=== PATIENT | female | born 1955 | race Caucasian/White ===

== ENCOUNTER 2023-08-19 16:01 | Inpatient (IN) | payer MEDICARE, OTHER ==
[~2023-08-19] VITALS: Ht 167.6 cm; Wt 107.9 kg
[~2023-08-19 16:01] MED LIST: ALBU83IN INH; ATEN50TA2 PO; ATRO0.06 INH; ATROVENT0.02% INH; AVEL1TAB2 OR; BABY81CH OR; CEFT250T OR; CLON0.5T PO; DUONSOL IN; GLUC500T OR; HYDROCHLOROTHIAZIDE PO; IBUP400T OR; IBUP400T PO; INSULANT SC; KLON0.5T OR; MIRT1TAB21 PO; NICO21DI4 TD; NORT25CA2 PO; PAME50CA OR; PRED5EL OR; PRIN5TAB OR; PROT20TA11 PO; RANI300T OR; REME30TA OR; SPIRONOLACTONE PO; TENO50TA OR; TRAZ300T2 OR; TRAZ300T2 PO; VENTAER IN; ZANT300T OR; ZOCO40TA OR
[2023-08-19 16:46] LABS: BASO # 0.1 10^3/uL (0.0-0.2); BASO % 0.8 % (0.0-1.0); EOS # 0.1 10^3/uL (0.0-0.5); EOS % 0.8 % (0.0-3.0); HEMATOCRIT 48.6 % (36.0-47.0); HEMOGLOBIN 16.2 g/dl (12.0-15.5); LYMPH # 2.1 10^3/uL (1.5-5.0); LYMPH % 22.1 % (24.0-44.0); MEAN CORPUSCULAR HEMOGLOBIN 30.9 pg (27.0-33.0); MEAN CORPUSCULAR HGB CONC 33.3 g/dl (32.0-36.5); MEAN CORPUSCULAR VOLUME 92.7 fl (80.0-96.0); MONO # 0.9 10^3/uL (0.0-0.8); MONO % 9.3 % (2.0-8.0); NEUTROPHILS # 6.2 10^3/uL (1.5-8.5); NEUTROPHILS % 66.6 % (36.0-66.0); PLATELET COUNT, AUTOMATED 286 10^3/uL (150-450); RED BLOOD COUNT 5.24 10^6/uL (4.00-5.40); WHITE BLOOD COUNT 9.3 10^3/uL (4.0-10.0)
[2023-08-19 17:16] LABS: BLOOD UREA NITROGEN 18 MG/DL (9-23); CALCIUM LEVEL 8.8 MG/DL (8.3-10.6); CARBON DIOXIDE LEVEL 21 MMOL/L (20-31); CHLORIDE LEVEL 109 MMOL/L (98-107); CREATININE FOR GFR 0.68 MG/DL (0.55-1.30); GLOMERULAR FILTRATION RATE > 60.0 (>45); GLUCOSE, FASTING 104 MG/DL (74-106); POTASSIUM SERUM 4.4 MMOL/L (3.5-5.1); SODIUM LEVEL 140 MMOL/L (136-145)
[2023-08-19 17:35] LABS: ABG BASE EXCESS -1.9 (-2.0-2.0); ABG O2 SATURATION 88.1 % (95.0-99.0); ABG PARTIAL PRESSURE O2 52.9 mmHg (75.0-100.0); ABG STANDARD HCO3 22.6 MMOL/L. (22.0-26.0); ABG TOTAL CO2 25.4 MMOL/L (23.0-31.0); ABG pH (ARTERIAL) 7.345 UNITS (7.350-7.450)
[2023-08-19] MEDS: IPRATROPIUM 0.5MG/ALBUTEROL 2.5MG INH SOL UD 3ML (DUONEB) NEB SCH ×2 (17:41→20:07)
[2023-08-19] MEDS ORDERED: GLUCOSE 4GM CHEW TABLET PO PRN (18:20)
[2023-08-19] MEDS ORDERED: GLUCAGON INJ 1MG VIAL SC PRN (18:20)
[2023-08-19] MEDS ORDERED: DEXTROSE 50% 50ML SYRINGE IV PRN (18:20)
[2023-08-19 19:09] LABS: PROCALCITONIN 0.07 ng/ml
[2023-08-19] MEDS ORDERED: TRAZ-252 PO (19:51)
[2023-08-19] MEDS ORDERED: ALBU8.5H PO (19:51)
[2023-08-19] MEDS ORDERED: SERT25TA21 PO (19:51)
[2023-08-19] MEDS ORDERED: IBUP80TA PO (19:51)
[2023-08-19] MEDS ORDERED: ATOR1TAB21 PO (19:51)
[2023-08-19] MEDS ORDERED: SPIR1CAP INH (19:51)
[2023-08-19] MEDS ORDERED: METF500T13 PO (19:51)
[2023-08-19] MEDS ORDERED: PANT40TA29 PO (19:51)
[2023-08-19] MEDS ORDERED: HYDR12CA PO (19:51)
[2023-08-19] MEDS ORDERED: HOME MED LIST COMPLETE! XX SCH (19:55)
[2023-08-19] MEDS ORDERED: IPRATROPIUM 0.5MG/ALBUTEROL 2.5MG INH SOL UD 3ML (DUONEB) NEB SCH (20:00)
[2023-08-19] MEDS ORDERED: SYMBICORT 160/4.5MCG INHALER 6GM INH SCH (20:00)
[2023-08-19] MEDS: cefTRIAXone SOD 1 GM in D5W MINI-BAG PLUS 50 ML IV SCH (20:34)
[2023-08-19] MEDS: methylPREDNISolone 40MG 1ML VIAL IV SCH (20:34)
[2023-08-19] MEDS: INSULIN LISPRO (NovoLOG) PER UNIT SC SCH (21:00)
[2023-08-19 21:45] VITALS: BP 133/85; TEMP 99; O2SAT 85
[2023-08-19] MEDS: AZITHROMYCIN 250MG TABLET PO SCH (21:57)
[2023-08-19] MEDS: ALBUTEROL SULFATE 2.5MG/0.5ML INH NEB SOLN NEB SCH ×2 (22:06→23:50)
[2023-08-19] MEDS: SODIUM CHLORIDE HYPERTONIC 3% 4ML NEB SOL INH SCH ×2 (22:06→23:50)
[2023-08-19 22:15] VITALS: O2SAT 91
[2023-08-19 22:42] VITALS: O2SAT 90
[2023-08-19 22:43] VITALS: O2SAT 90
[2023-08-19 23:53] VITALS: O2SAT 93
[2023-08-20] VITALS (8 sets, daily range): BP systolic 105–143; BP diastolic 54–65; TEMP 98.2–98.8; O2SAT 88–93
[2023-08-20] MEDS: methylPREDNISolone 40MG 1ML VIAL IV SCH (03:54)
[2023-08-20] MEDS: SODIUM CHLORIDE HYPERTONIC 3% 4ML NEB SOL INH SCH ×5 (04:24→21:16)
[2023-08-20] MEDS: ALBUTEROL SULFATE 2.5MG/0.5ML INH NEB SOLN NEB SCH (04:24)
[2023-08-20 06:42] LABS: BASO % 0.2 % (0.0-1.0); HEMATOCRIT 46.2 % (36.0-47.0); HEMOGLOBIN 14.9 g/dl (12.0-15.5); LYMPH # 0.5 10^3/uL (1.5-5.0); LYMPH % 8.6 % (24.0-44.0); MEAN CORPUSCULAR HEMOGLOBIN 29.7 pg (27.0-33.0); MEAN CORPUSCULAR HGB CONC 32.3 g/dl (32.0-36.5); MEAN CORPUSCULAR VOLUME 92.2 fl (80.0-96.0); MONO # 0.1 10^3/uL (0.0-0.8); MONO % 0.9 % (2.0-8.0); NEUTROPHILS # 5.2 10^3/uL (1.5-8.5); PLATELET COUNT, AUTOMATED 254 10^3/uL (150-450); RED BLOOD COUNT 5.01 10^6/uL (4.00-5.40); WHITE BLOOD COUNT 5.8 10^3/uL (4.0-10.0)
[2023-08-20 07:00] LABS: BLOOD UREA NITROGEN 17 MG/DL (9-23); CALCIUM LEVEL 8.7 MG/DL (8.3-10.6); CARBON DIOXIDE LEVEL 23 MMOL/L (20-31); CHLORIDE LEVEL 105 MMOL/L (98-107); CREATININE FOR GFR 0.61 MG/DL (0.55-1.30); GLOMERULAR FILTRATION RATE > 60.0 (>45); GLUCOSE, FASTING 195 MG/DL (74-106); POTASSIUM SERUM 4.5 MMOL/L (3.5-5.1); SODIUM LEVEL 135 MMOL/L (136-145)
[2023-08-20] MEDS: BUDESONIDE 0.25 MG/2 ML INHALATION SUSPENSION INH SCH ×2 (07:21→21:16)
[2023-08-20] MEDS: FORMOTEROL FUMARATE 20 MCG/2 ML INHALATION SOLUTION (PERFOROMIST) INH SCH ×2 (07:22→21:16)
[2023-08-20] MEDS: IPRATROPIUM 0.5MG/ALBUTEROL 2.5MG INH SOL UD 3ML (DUONEB) NEB SCH ×4 (07:23→21:16)
[2023-08-20] MEDS ORDERED: TIOTROPIUM INHALER/CAPSULE (SPIRIVA) INH SCH (08:00)
[2023-08-20] MEDS: INSULIN LISPRO (NovoLOG) PER UNIT SC SCH ×4 (08:06→21:00)
[2023-08-20] MEDS: ENOXAPARIN 40MG/0.4ML SYRINGE (J1650 PER 10MG) SC SCH (08:07)
[2023-08-20] MEDS: methylPREDNISolone 125MG 2ML VIAL IV SCH ×3 (12:24→23:37)
[2023-08-20] MEDS ORDERED: SPIR1CAP INH (13:04)
[2023-08-20] MEDS ORDERED: SYMB16INH INH ×2 (13:04→13:06)
[2023-08-20] MEDS: ALBUTEROL SULFATE 2.5MG/0.5ML INH NEB SOLN NEB PRN (15:24)
[2023-08-20] MEDS: AZITHROMYCIN 250MG TABLET PO SCH (20:14)
[2023-08-20] MEDS: cefTRIAXone SOD 1 GM in D5W MINI-BAG PLUS 50 ML IV SCH (20:15)
[2023-08-21] VITALS (7 sets, daily range): BP systolic 134–141; BP diastolic 58–75; TEMP 96.6–98.1; O2SAT 90–99
[2023-08-21] MEDS: SODIUM CHLORIDE HYPERTONIC 3% 4ML NEB SOL INH SCH ×7 (00:26→23:53)
[2023-08-21] MEDS: ALBUTEROL SULFATE 2.5MG/0.5ML INH NEB SOLN NEB PRN (00:26)
[2023-08-21] MEDS: IPRATROPIUM 0.5MG/ALBUTEROL 2.5MG INH SOL UD 3ML (DUONEB) NEB SCH ×7 (00:27→23:53)
[2023-08-21] MEDS: methylPREDNISolone 125MG 2ML VIAL IV SCH ×3 (05:44→21:36)
[2023-08-21 05:48] LABS: BASO % 0.1 % (0.0-1.0); HEMOGLOBIN 14.8 g/dl (12.0-15.5); LYMPH # 0.8 10^3/uL (1.5-5.0); LYMPH % 9.3 % (24.0-44.0); MEAN CORPUSCULAR HEMOGLOBIN 30.4 pg (27.0-33.0); MEAN CORPUSCULAR HGB CONC 32.9 g/dl (32.0-36.5); MEAN CORPUSCULAR VOLUME 92.4 fl (80.0-96.0); MONO # 0.2 10^3/uL (0.0-0.8); MONO % 2.3 % (2.0-8.0); NEUTROPHILS # 7.6 10^3/uL (1.5-8.5); NEUTROPHILS % 87.6 % (36.0-66.0); PLATELET COUNT, AUTOMATED 301 10^3/uL (150-450); RED BLOOD COUNT 4.87 10^6/uL (4.00-5.40); WHITE BLOOD COUNT 8.7 10^3/uL (4.0-10.0)
[2023-08-21 06:30] LABS: BLOOD UREA NITROGEN 26 MG/DL (9-23); CALCIUM LEVEL 9.1 MG/DL (8.3-10.6); CARBON DIOXIDE LEVEL 22 MMOL/L (20-31); CHLORIDE LEVEL 106 MMOL/L (98-107); CREATININE FOR GFR 0.64 MG/DL (0.55-1.30); GLOMERULAR FILTRATION RATE > 60.0 (>45); GLUCOSE, FASTING 265 MG/DL (74-106); POTASSIUM SERUM 4.2 MMOL/L (3.5-5.1); SODIUM LEVEL 135 MMOL/L (136-145)
[2023-08-21] MEDS: BUDESONIDE 0.25 MG/2 ML INHALATION SUSPENSION INH SCH (07:18)
[2023-08-21] MEDS: FORMOTEROL FUMARATE 20 MCG/2 ML INHALATION SOLUTION (PERFOROMIST) INH SCH (07:19)
[2023-08-21] MEDS: SENOKOT S TAB PO SCH ×2 (07:56→21:00)
[2023-08-21] MEDS: PANTOPRAZOLE 40MG TAB (PROTONIX) PO SCH (07:56)
[2023-08-21] MEDS: INSULIN LISPRO (NovoLOG) PER UNIT SC SCH ×4 (07:57→21:00)
[2023-08-21] MEDS: ENOXAPARIN 40MG/0.4ML SYRINGE (J1650 PER 10MG) SC SCH (07:58)
[2023-08-21] MEDS ORDERED: FUROSEMIDE 40MG/4ML VIAL IV ONE (09:00)
[2023-08-21] MEDS: LEVEMIR (INSULIN DETEMIR) 1 UNITS/0.01ML SC SCH (12:44)
[2023-08-21] MEDS: IBUPROFEN 600MG TAB PO PRN (15:36)
[2023-08-21] MEDS: ACETAMINOPHEN 500 MG TAB PO PRN (15:37)
[2023-08-21] MEDS: SYMBICORT 160/4.5MCG INHALER 6GM INH SCH (19:27)
[2023-08-21] MEDS: cefTRIAXone SOD 1 GM in D5W MINI-BAG PLUS 50 ML IV SCH (21:35)
[2023-08-21] MEDS: AZITHROMYCIN 250MG TABLET PO SCH (21:36)
[2023-08-22] MEDS: IBUPROFEN 600MG TAB PO PRN ×2 (00:13→21:38)
[2023-08-22] MEDS: ACETAMINOPHEN 500 MG TAB PO PRN ×3 (00:14→21:37)
[2023-08-22] MEDS: IPRATROPIUM 0.5MG/ALBUTEROL 2.5MG INH SOL UD 3ML (DUONEB) NEB SCH ×6 (03:30→23:47)
[2023-08-22] MEDS: SODIUM CHLORIDE HYPERTONIC 3% 4ML NEB SOL INH SCH ×6 (03:30→23:47)
[2023-08-22] MEDS: methylPREDNISolone 125MG 2ML VIAL IV SCH ×3 (05:23→21:36)
[2023-08-22] MEDS: PANTOPRAZOLE 40MG TAB (PROTONIX) PO SCH (05:54)
[2023-08-22 06:06] LABS: BASO % 0.2 % (0.0-1.0); HEMATOCRIT 45.7 % (36.0-47.0); HEMOGLOBIN 14.9 g/dl (12.0-15.5); LYMPH # 0.9 10^3/uL (1.5-5.0); LYMPH % 8.2 % (24.0-44.0); MEAN CORPUSCULAR HEMOGLOBIN 29.8 pg (27.0-33.0); MEAN CORPUSCULAR HGB CONC 32.6 g/dl (32.0-36.5); MEAN CORPUSCULAR VOLUME 91.4 fl (80.0-96.0); MONO # 0.2 10^3/uL (0.0-0.8); MONO % 2.1 % (2.0-8.0); NEUTROPHILS # 9.3 10^3/uL (1.5-8.5); NEUTROPHILS % 88.7 % (36.0-66.0); PLATELET COUNT, AUTOMATED 340 10^3/uL (150-450); WHITE BLOOD COUNT 10.5 10^3/uL (4.0-10.0)
[2023-08-22 06:23] VITALS: BP 145/82; TEMP 97.9; O2SAT 90
[2023-08-22 06:36] LABS: BLOOD UREA NITROGEN 39 MG/DL (9-23); CALCIUM LEVEL 9.1 MG/DL (8.3-10.6); CARBON DIOXIDE LEVEL 24 MMOL/L (20-31); CHLORIDE LEVEL 106 MMOL/L (98-107); CREATININE FOR GFR 0.75 MG/DL (0.55-1.30); GLOMERULAR FILTRATION RATE > 60.0 (>45); GLUCOSE, FASTING 252 MG/DL (74-106); POTASSIUM SERUM 4.1 MMOL/L (3.5-5.1); SODIUM LEVEL 138 MMOL/L (136-145)
[2023-08-22] MEDS: TIOTROPIUM INHALER/CAPSULE (SPIRIVA) INH SCH (07:42)
[2023-08-22] MEDS: SYMBICORT 160/4.5MCG INHALER 6GM INH SCH ×2 (07:43→19:13)
[2023-08-22] MEDS: INSULIN LISPRO (NovoLOG) PER UNIT SC SCH ×4 (08:41→21:37)
[2023-08-22] MEDS: SENOKOT S TAB PO SCH ×2 (08:41→21:37)
[2023-08-22] MEDS: LEVEMIR (INSULIN DETEMIR) 1 UNITS/0.01ML SC SCH (08:42)
[2023-08-22] MEDS: ENOXAPARIN 40MG/0.4ML SYRINGE (J1650 PER 10MG) SC SCH (08:42)
[2023-08-22 14:00] VITALS: BP 137/76; TEMP 98.4; O2SAT 90
[2023-08-22 19:21] VITALS: O2SAT 90
[2023-08-22 20:20] VITALS: BP 136/74; TEMP 98.4; O2SAT 91
[2023-08-22 23:49] VITALS: O2SAT 90
[2023-08-23] VITALS (8 sets, daily range): BP systolic 143–158; BP diastolic 66–77; TEMP 97.9–98.4; O2SAT 90–92
[2023-08-23] MEDS: IPRATROPIUM 0.5MG/ALBUTEROL 2.5MG INH SOL UD 3ML (DUONEB) NEB SCH ×6 (03:39→22:49)
[2023-08-23] MEDS: SODIUM CHLORIDE HYPERTONIC 3% 4ML NEB SOL INH SCH ×6 (03:39→22:48)
[2023-08-23] MEDS: PANTOPRAZOLE 40MG TAB (PROTONIX) PO SCH (05:14)
[2023-08-23] MEDS: IBUPROFEN 600MG TAB PO PRN (05:15)
[2023-08-23] MEDS: methylPREDNISolone 125MG 2ML VIAL IV SCH ×3 (05:15→21:06)
[2023-08-23] MEDS: ACETAMINOPHEN 500 MG TAB PO PRN (05:15)
[2023-08-23 06:30] LABS: HEMATOCRIT 43.6 % (36.0-47.0); HEMOGLOBIN 14.4 g/dl (12.0-15.5); MEAN CORPUSCULAR HEMOGLOBIN 29.9 pg (27.0-33.0); MEAN CORPUSCULAR VOLUME 90.6 fl (80.0-96.0); PLATELET COUNT, AUTOMATED 327 10^3/uL (150-450); RED BLOOD COUNT 4.81 10^6/uL (4.00-5.40); WHITE BLOOD COUNT 9.9 10^3/uL (4.0-10.0)
[2023-08-23 07:04] LABS: BLOOD UREA NITROGEN 29 MG/DL (9-23); CALCIUM LEVEL 9.7 MG/DL (8.3-10.6); CARBON DIOXIDE LEVEL 22 MMOL/L (20-31); CHLORIDE LEVEL 109 MMOL/L (98-107); CREATININE FOR GFR 0.66 MG/DL (0.55-1.30); GLOMERULAR FILTRATION RATE > 60.0 (>45); GLUCOSE, FASTING 218 MG/DL (74-106); POTASSIUM SERUM 4.2 MMOL/L (3.5-5.1); SODIUM LEVEL 138 MMOL/L (136-145)
[2023-08-23] MEDS: SYMBICORT 160/4.5MCG INHALER 6GM INH SCH ×2 (07:14→19:09)
[2023-08-23] MEDS: TIOTROPIUM INHALER/CAPSULE (SPIRIVA) INH SCH (07:14)
[2023-08-23 07:46] LABS: ATYPICAL LYMPH 3 % (0-5); LYMPHOCYTES 7 % (16-44); NEUTROPHILS 90 % (28-66)
[2023-08-23 07:47] LABS: PLATELET ESTIMATE NORMAL (NORMAL)
[2023-08-23] MEDS: INSULIN LISPRO (NovoLOG) PER UNIT SC SCH ×4 (08:15→20:41)
[2023-08-23] MEDS: SENOKOT S TAB PO SCH ×2 (08:16→20:40)
[2023-08-23] MEDS: LEVEMIR (INSULIN DETEMIR) 1 UNITS/0.01ML SC SCH ×2 (08:17→20:41)
[2023-08-23] MEDS: ENOXAPARIN 40MG/0.4ML SYRINGE (J1650 PER 10MG) SC SCH (08:18)
[2023-08-23 08:55] LABS: ALBUMIN 3.2 G/DL (3.2-5.2); ALKALINE PHOSPHATASE 54 U/L (46-116); ALT/SGPT 14 U/L (7.0-40); AST/SGOT < 8 U/L (<34); BILIRUBIN,DIRECT < 0.1 MG/DL (<0.4); BILIRUBIN,TOTAL 0.3 MG/DL (0.3-1.2); TOTAL PROTEIN 6.2 G/DL (5.7-8.2)
[2023-08-23 10:06] LABS: HEMOGLOBIN A1c 7.6 % (4.0-6.0)
[2023-08-23] MEDS: SERTRALINE HCL 25 MG TABLET PO SCH (12:49)
[2023-08-23] MEDS: hydroCHLOROthiazide 12.5 MG CAPSULE PO SCH (13:03)
[2023-08-23] MEDS: traZODone 50 MG TAB PO SCH (20:40)
[2023-08-24] MEDS: SODIUM CHLORIDE HYPERTONIC 3% 4ML NEB SOL INH SCH ×5 (03:26→19:45)
[2023-08-24] MEDS: IPRATROPIUM 0.5MG/ALBUTEROL 2.5MG INH SOL UD 3ML (DUONEB) NEB SCH ×5 (03:26→19:44)
[2023-08-24 05:00] VITALS: BP 148/74; TEMP 97.2; O2SAT 92
[2023-08-24] MEDS: methylPREDNISolone 125MG 2ML VIAL IV SCH ×3 (05:10→21:49)
[2023-08-24] MEDS: PANTOPRAZOLE 40MG TAB (PROTONIX) PO SCH (05:10)
[2023-08-24 05:55] LABS: BASO % 0.3 % (0.0-1.0); HEMATOCRIT 45.3 % (36.0-47.0); HEMOGLOBIN 15.1 g/dl (12.0-15.5); LYMPH # 1.1 10^3/uL (1.5-5.0); LYMPH % 9.6 % (24.0-44.0); MEAN CORPUSCULAR HGB CONC 33.3 g/dl (32.0-36.5); MEAN CORPUSCULAR VOLUME 90.1 fl (80.0-96.0); MONO # 0.5 10^3/uL (0.0-0.8); MONO % 4.1 % (2.0-8.0); NEUTROPHILS # 9.3 10^3/uL (1.5-8.5); NEUTROPHILS % 84.1 % (36.0-66.0); PLATELET COUNT, AUTOMATED 357 10^3/uL (150-450); RED BLOOD COUNT 5.03 10^6/uL (4.00-5.40)
[2023-08-24 06:15] LABS: BLOOD UREA NITROGEN 26 MG/DL (9-23); CALCIUM LEVEL 9.9 MG/DL (8.3-10.6); CARBON DIOXIDE LEVEL 24 MMOL/L (20-31); CHLORIDE LEVEL 106 MMOL/L (98-107); CREATININE FOR GFR 0.63 MG/DL (0.55-1.30); GLOMERULAR FILTRATION RATE > 60.0 (>45); GLUCOSE, FASTING 219 MG/DL (74-106); POTASSIUM SERUM 4.2 MMOL/L (3.5-5.1); SODIUM LEVEL 138 MMOL/L (136-145)
[2023-08-24] MEDS: SYMBICORT 160/4.5MCG INHALER 6GM INH SCH ×2 (07:21→19:44)
[2023-08-24] MEDS: TIOTROPIUM INHALER/CAPSULE (SPIRIVA) INH SCH (07:21)
[2023-08-24 10:00] VITALS: O2SAT 84
[2023-08-24 10:05] VITALS: O2SAT 90
[2023-08-24] MEDS: ACETAMINOPHEN 500 MG TAB PO PRN ×2 (10:12→21:54)
[2023-08-24] MEDS: IBUPROFEN 600MG TAB PO PRN ×2 (10:12→21:52)
[2023-08-24] MEDS: SERTRALINE HCL 25 MG TABLET PO SCH (10:13)
[2023-08-24] MEDS: hydroCHLOROthiazide 12.5 MG CAPSULE PO SCH (10:13)
[2023-08-24] MEDS: SENOKOT S TAB PO SCH ×2 (10:14→21:48)
[2023-08-24] MEDS: LEVEMIR (INSULIN DETEMIR) 1 UNITS/0.01ML SC SCH ×2 (10:14→21:50)
[2023-08-24] MEDS: INSULIN LISPRO (NovoLOG) PER UNIT SC SCH ×4 (10:15→21:49)
[2023-08-24] MEDS: ENOXAPARIN 40MG/0.4ML SYRINGE (J1650 PER 10MG) SC SCH (10:15)
[2023-08-24] MEDS ORDERED: FUROSEMIDE 40MG/4ML VIAL IV ONE (12:30)
[2023-08-24 14:00] VITALS: BP 142/69; TEMP 98.4; O2SAT 91
[2023-08-24 18:30] VITALS: O2SAT 91
[2023-08-24 20:46] VITALS: BP 141/74; TEMP 97.5; O2SAT 91
[2023-08-24] MEDS: traZODone 50 MG TAB PO SCH (21:48)
[2023-08-25] MEDS: IPRATROPIUM 0.5MG/ALBUTEROL 2.5MG INH SOL UD 3ML (DUONEB) NEB SCH ×6 (00:03→21:34)
[2023-08-25] MEDS: SODIUM CHLORIDE HYPERTONIC 3% 4ML NEB SOL INH SCH ×6 (00:03→21:34)
[2023-08-25 05:38] LABS: BASO % 0.4 % (0.0-1.0); HEMATOCRIT 46.1 % (36.0-47.0); HEMOGLOBIN 15.5 g/dl (12.0-15.5); LYMPH # 1.3 10^3/uL (1.5-5.0); LYMPH % 11.6 % (24.0-44.0); MEAN CORPUSCULAR HEMOGLOBIN 29.9 pg (27.0-33.0); MEAN CORPUSCULAR HGB CONC 33.6 g/dl (32.0-36.5); MONO # 0.5 10^3/uL (0.0-0.8); MONO % 4.3 % (2.0-8.0); NEUTROPHILS # 9.1 10^3/uL (1.5-8.5); PLATELET COUNT, AUTOMATED 363 10^3/uL (150-450); RED BLOOD COUNT 5.18 10^6/uL (4.00-5.40); WHITE BLOOD COUNT 11.4 10^3/uL (4.0-10.0)
[2023-08-25 05:40] VITALS: BP 140/74; TEMP 97.9; O2SAT 91
[2023-08-25] MEDS: PANTOPRAZOLE 40MG TAB (PROTONIX) PO SCH (06:02)
[2023-08-25] MEDS: methylPREDNISolone 125MG 2ML VIAL IV SCH (06:02)
[2023-08-25 06:08] LABS: BLOOD UREA NITROGEN 31 MG/DL (9-23); CALCIUM LEVEL 9.9 MG/DL (8.3-10.6); CARBON DIOXIDE LEVEL 27 MMOL/L (20-31); CHLORIDE LEVEL 103 MMOL/L (98-107); CREATININE FOR GFR 0.66 MG/DL (0.55-1.30); GLOMERULAR FILTRATION RATE > 60.0 (>45); GLUCOSE, FASTING 180 MG/DL (74-106); POTASSIUM SERUM 4.3 MMOL/L (3.5-5.1); SODIUM LEVEL 138 MMOL/L (136-145)
[2023-08-25] MEDS: SYMBICORT 160/4.5MCG INHALER 6GM INH SCH ×2 (07:17→21:35)
[2023-08-25] MEDS: TIOTROPIUM INHALER/CAPSULE (SPIRIVA) INH SCH (07:17)
[2023-08-25] MEDS: ENOXAPARIN 40MG/0.4ML SYRINGE (J1650 PER 10MG) SC SCH (08:09)
[2023-08-25] MEDS: INSULIN LISPRO (NovoLOG) PER UNIT SC SCH ×4 (08:10→22:02)
[2023-08-25] MEDS: LEVEMIR (INSULIN DETEMIR) 1 UNITS/0.01ML SC SCH ×2 (08:10→22:01)
[2023-08-25] MEDS: SERTRALINE HCL 25 MG TABLET PO SCH (08:11)
[2023-08-25] MEDS: SENOKOT S TAB PO SCH ×2 (08:11→21:00)
[2023-08-25] MEDS: hydroCHLOROthiazide 12.5 MG CAPSULE PO SCH (08:11)
[2023-08-25] MEDS ORDERED: FUROSEMIDE 40MG/4ML VIAL IV ONE (09:00)
[2023-08-25 14:00] VITALS: BP 128/69; TEMP 98.4; O2SAT 90
[2023-08-25] MEDS: methylPREDNISolone 40MG 1ML VIAL IV SCH ×2 (15:10→22:01)
[2023-08-25 20:54] VITALS: BP 129/69; TEMP 98.6; O2SAT 90
[2023-08-25] MEDS: traZODone 50 MG TAB PO SCH (22:00)
[2023-08-26] MEDS: MYCOLOG CREAM 15GM (NYSTATIN/TRIAMCINOLONE) TOP SCH ×2 (00:58→08:08)
[2023-08-26] MEDS: SODIUM CHLORIDE HYPERTONIC 3% 4ML NEB SOL INH SCH ×4 (01:34→11:18)
[2023-08-26] MEDS: IPRATROPIUM 0.5MG/ALBUTEROL 2.5MG INH SOL UD 3ML (DUONEB) NEB SCH ×4 (01:34→11:18)
[2023-08-26 05:25] VITALS: BP 125/71; TEMP 98.4; O2SAT 90
[2023-08-26] MEDS: PANTOPRAZOLE 40MG TAB (PROTONIX) PO SCH (05:49)
[2023-08-26] MEDS: methylPREDNISolone 40MG 1ML VIAL IV SCH ×2 (05:50→12:43)
[2023-08-26 06:33] LABS: BASO # 0.1 10^3/uL (0.0-0.2); BASO % 0.6 % (0.0-1.0); HEMATOCRIT 48.6 % (36.0-47.0); HEMOGLOBIN 16.4 g/dl (12.0-15.5); LYMPH # 1.7 10^3/uL (1.5-5.0); LYMPH % 11.5 % (24.0-44.0); MEAN CORPUSCULAR HEMOGLOBIN 30.1 pg (27.0-33.0); MEAN CORPUSCULAR HGB CONC 33.7 g/dl (32.0-36.5); MEAN CORPUSCULAR VOLUME 89.3 fl (80.0-96.0); MONO # 0.7 10^3/uL (0.0-0.8); MONO % 4.4 % (2.0-8.0); NEUTROPHILS # 12.1 10^3/uL (1.5-8.5); PLATELET COUNT, AUTOMATED 356 10^3/uL (150-450); RED BLOOD COUNT 5.44 10^6/uL (4.00-5.40); WHITE BLOOD COUNT 15.1 10^3/uL (4.0-10.0)
[2023-08-26 06:56] LABS: BLOOD UREA NITROGEN 35 MG/DL (9-23); CALCIUM LEVEL 9.4 MG/DL (8.3-10.6); CARBON DIOXIDE LEVEL 28 MMOL/L (20-31); CHLORIDE LEVEL 100 MMOL/L (98-107); CREATININE FOR GFR 0.66 MG/DL (0.55-1.30); GLOMERULAR FILTRATION RATE > 60.0 (>45); GLUCOSE, FASTING 150 MG/DL (74-106); SODIUM LEVEL 135 MMOL/L (136-145)
[2023-08-26] MEDS: SERTRALINE HCL 25 MG TABLET PO SCH (08:06)
[2023-08-26] MEDS: INSULIN LISPRO (NovoLOG) PER UNIT SC SCH ×2 (08:06→12:43)
[2023-08-26] MEDS: hydroCHLOROthiazide 12.5 MG CAPSULE PO SCH (08:06)
[2023-08-26] MEDS: LEVEMIR (INSULIN DETEMIR) 1 UNITS/0.01ML SC SCH (08:06)
[2023-08-26] MEDS: ENOXAPARIN 40MG/0.4ML SYRINGE (J1650 PER 10MG) SC SCH (08:07)
[2023-08-26] MEDS: TIOTROPIUM INHALER/CAPSULE (SPIRIVA) INH SCH (08:13)
[2023-08-26] MEDS: SYMBICORT 160/4.5MCG INHALER 6GM INH SCH (08:13)
[2023-08-26] MEDS: SENOKOT S TAB PO SCH (09:00)
[2023-08-26] MEDS ORDERED: SENO8.6T10 PO ×2 (09:46→09:55)
[2023-08-26] MEDS ORDERED: PRED10TA2 PO ×2 (09:46→09:55)
[2023-08-26] MEDS ORDERED: ALBU8.5H PO ×3 (09:46→09:55)
[2023-08-26] MEDS ORDERED: METF-877 PO ×2 (09:46→09:55)
[2023-08-26] MEDS ORDERED: PANT40TA29 PO (09:46)
[2023-08-26] MEDS ORDERED: GLUC1TES2 XX ×2 (09:49→09:55)
[2023-08-26] MEDS ORDERED: LANC30MI XX ×2 (09:49→09:56)
[2023-08-26] MEDS ORDERED: BLOOKIT21 XX ×2 (09:49→09:55)
[2023-08-26] MEDS ORDERED: ALCOPAD25 TOP ×2 (09:49→09:55)
[2023-08-26] MEDS ORDERED: GLIM2TAB4 PO (09:50)
[2023-08-26] MEDS ORDERED: SYMB16INH INH (09:55)
[2023-08-26] MEDS ORDERED: SPIR1CAP INH (09:55)
[2023-08-26 14:00] VITALS: BP 128/70; TEMP 97.7; O2SAT 90
== END 2023-08-26 14:58 | disposition home or self-care (01) | DRG 189 ==
LOC: M ED 16:01 → M ED INP 18:17 → ENRESERV 19:49 → M MSPAV 21:40
PROVIDERS: ADMIT Internal Medicine Nephrology; ATTEND Internal Medicine Nephrology
DX: J96.21 Acute and chronic respiratory failure with hypoxia (principal); J44.1 Chronic obstructive pulmonary disease with (acute) exacerbation; J98.11 Atelectasis; Z99.81 Dependence on supplemental oxygen; F17.210 Nicotine dependence, cigarettes, uncomplicated; F41.9 Anxiety disorder, unspecified; F32.A Depression, unspecified; E78.5 Hyperlipidemia, unspecified; K21.9 Gastro-esophageal reflux disease without esophagitis; E66.9 Obesity, unspecified; J20.5 Acute bronchitis due to respiratory syncytial virus; I10 Essential (primary) hypertension; B37.2 Candidiasis of skin and nail; E11.65 Type 2 diabetes mellitus with hyperglycemia; T38.0X5A Adverse effect of glucocorticoids and synthetic analogues, initial encounter; Z68.38 Body mass index [BMI] 38.0-38.9, adult; Z79.82 Long term (current) use of aspirin; Z79.4 Long term (current) use of insulin; Z79.899 Other long term (current) drug therapy; Z79.1 Long term (current) use of non-steroidal anti-inflammatories (NSAID)